=== PATIENT | male | born 1985 | race Hispanic/Latino ===

== ENCOUNTER 2019-09-19 17:59 | Inpatient (IN) | payer OTHER ==
[2019-09-19] MEDS ORDERED: SODIUM CHLORIDE 0.9% 1000 ML IV SOLN IV ONE (21:26)
--- NOTE | 2019-09-19 21:26 | Event Note ---
ED Screening Note ED Screening Note: pt presents with a rectal abscess that began a week +fever This initial assessment/diagnostic orders/clinical plan/treatment(s) is/are subject to change based on patients health status, clinical progression and re- assessment by fellow clinical providers in the ED. Further treatment and workup at subsequent clinical providers discretion. Patient/guardian urged not to elope from the ED as their condition may be serious if not clinically assessed and managed. Initial orders include: code sepsis fever tachycardia in triage code sepsis initiated
[2019-09-19] MEDS ORDERED: ACETAMINOPHEN 325 MG TAB PO ONE (21:28)
[2019-09-19 21:49] LABS: Basophils # (Auto) 0.1 K/mm3 (0.0-0.1); Basophils % (Auto) 0.4 % (0.0-1.8); Eosinophils # (Auto) 0.1 K/mm3 (0.0-0.4); Eosinophils % (Auto) 0.4 % (0.0-4.3); Hematocrit 43.3 % (35.5-45.6); Hemoglobin 14.8 gm/dl (11.8-15.2); Lymphocytes # (Auto) 1.5 K/mm3 (1.2-5.4); Lymphocytes % (Auto) 9.1 % (13.4-35.0); Mean Corpuscular HGB Conc 34 % (32-34); Mean Corpuscular Volume 87 fl (84-94); Monocytes # (Auto) 1.6 K/mm3 (0.0-0.8); Monocytes % (Auto) 10.1 % (0.0-7.3); Platelet Count 283 K/mm3 (140-440); Red Blood Count 5.01 M/mm3 (3.65-5.03); Red Cell Distribution Width 13.6 % (13.2-15.2)
[2019-09-19 22:04] LABS: Alanine Aminotransferase 28 units/L (7-56); Albumin 4.1 g/dL (3.9-5); BUN/Creatinine Ratio 14; Blood Urea Nitrogen 10 mg/dL (9-20); Calcium 9.2 mg/dL (8.4-10.2); Hemolysis Index 2
[2019-09-19] MEDS ORDERED: HYDROmorphone 1 MG/1 ML INJ IV ONE (23:28)
[2019-09-19] MEDS ORDERED: metroNIDAZOLE/NS 500 MG/100 ML 500 MG/100 ML BAG IV ONE (23:28)
[2019-09-19] MEDS ORDERED: PIPERACIL/TAZOBACTA 4.5/NS 100 4.5 GM/100 ML VIAL IV ONE (23:28)
--- NOTE | 2019-09-19 23:30 | Emergency Department Report ---
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 To me, he denies chronic medical conditions. He presents to the ER with a complaint of "I think I have a perirectal abscess." He complains of 10 days right sided gluteal cheek pain and swelling, gradual, nontraumatic. He did not know that he had a fever. He denies additional complaints. His pain is sharp and throbbing, increases with palpation, and decreases with rest. He denies insertive anal intercourse, and denies insertion of foreign bodies into his rectum. To me, he denies testicular pain, and irritative/obstructive urinary symptoms. Symptoms constant, getting worse, increased with palpation, decreases with rest -: Gradual, days(s) Location: right Severity scale (0 -10): 9 Consistency: constant Improves with: other Worsens with: other - Related Data Allergies Allergy/AdvReac Type Severity Reaction Status Date / Time No Known Allergies Allergy Unverified 09/19/19 18:16 ED Review of Systems ROS: Stated complaint: BOIL ON BUTT Other details as noted in HPI Constitutional: see HPI Eyes: as per HPI ENT: as per HPI Respiratory: see HPI Cardiovascular: as per HPI Gastrointestinal: as per HPI. denies: nausea, diarrhea, constipation Genitourinary: as per HPI Musculoskeletal: arthralgia Skin: rash Neurological: weakness Psychiatric: as per HPI Hematological/Lymphatic: as per HPI ED Past Medical Hx - Past Medical History Previous Medical History?: Yes Additional medical history: Hyperthyroidism - Surgical History Past Surgical History?: No - Social History Smoking Status: Unknown if ever smoked Substance Use Type: None ED Physical Exam - General Limitations: No Limitations General appearance: alert, anxious, in distress - Head Head exam: Present: atraumatic, normocephalic - Eye Eye exam: Present: normal appearance - ENT ENT exam: Present: normal exam, normal orophraynx, mucous membranes moist, normal external ear exam - Neck Neck exam: Present: normal inspection, full ROM. Absent: tenderness, meningismus - Respiratory Respiratory exam: Present: normal lung sounds bilaterally. Absent: respiratory distress, wheezes, rales, rhonchi, stridor, chest wall tenderness, accessory m uscle use, decreased breath sounds, prolonged expiratory - Cardiovascular Cardiovascular Exam: Present: normal rhythm, tachycardia, normal heart sounds. Absent: systolic murmur, diastolic murmur, rubs, gallop - GI/Abdominal GI/Abdominal exam: Present: soft. Absent: distended, tenderness, guarding, rebound, rigid, pulsatile mass - Rectal Rectal exam: Present: other (There is induration and fluctuance noted to the right gluteal cheek. There is redness. There is no testicular tenderness.). Absent: normal inspection - exam: Present: normal inspection, other (There is normal testicular lie. There is normal cremasteric reflex. There is no testicular tenderness. There is no testicular swelling). Absent: testicular tenderness External exam: Present: normal external exam, other (Chaperoned by nurse Cathleen Moore) - Extremities Exam Extremities exam: Present: normal inspection, full ROM, other (2+ pulses noted in the bilateral upper and lower extremities. There is no palpable cord. negative Homans sign. Muscular compartments are soft. The pelvis is stable.). Absent: pedal edema, calf tenderness - Back Exam Back exam: Present: normal inspection, full ROM. Absent: tenderness, CVA tenderness (R), CVA tenderness (L), paraspinal tenderness, vertebral tenderness - Neurological Exam Neurological exam: Present: alert, oriented X3, other (There is no facial droop. The tongue is midline. Extraocular movements are intact bilaterally. There is 5 out of 5 strength in bilateral upper and lower extremities. Sensation is intact to light touch bilateral upper and lower extremities. There is a normal gait.). Absent: motor sensory deficit - Psychiatric Psychiatric exam: Present: anxious - Skin Skin exam: Present: warm, erythema ED Course Vital Signs 09/19/19 09/19/19 09/19/19 19:21 21:37 23:24 Temperature 101.5 F H 102.6 F H Pulse Rate 116 H 116 H Respiratory 18 18 Rate Blood Pressure 153/83 153/83 O2 Sat by Pulse 97 97 99 Oximetry 09/19/19 09/19/19 23:30 23:31 Temperature 98.8 F Pulse Rate 106 H Respiratory 24 Rate Blood Pressure 138/91 O2 Sat by Pulse 97 Oximetry - Reevaluation(s) Reevaluation #1: 09/20/19 00:15 Differential diagnosis, including but not limited to: Perirectal abscess, perianal abscess, Randolph's gangrene Assessment and plan: 34-year-old gentleman, who is not immune compromised, who reports he is not a diabetic, with gluteal abscess, and probable sepsis. He is febrile and tachycardic. He also appears to be quite anxious. He is hemodynamically stable. He will be given fluids, pain medication, antibiotics, CT scan of the pelvis will be obtained. We will reassess after his data points have resulted. Discussed plan of care with patient, who verbalized understanding. There is no testicular pain or tenderness. Reevaluation #2: 09/20/19 02:00 ct scan pelvis confirms perianal abscess without presence of Randolph's gangrene. Contacted general surgeon on-call, Dr. Nickerson, who will see the patient in consultation. Consulted hospital physician, Dr. Rowan, who has accepted the patient to the medical service. Discussed this with the patient, who verbalizes understanding. 09/20/19 02:02 ED Medical Decision Making - Lab Data Result diagrams: 09/19/19 21:36 09/19/19 21:36 Vital Signs 09/19/19 09/19/19 09/19/19 19:21 21:37 23:24 Temperature 101.5 F H 102.6 F H Pulse Rate 116 H 116 H Respiratory 18 18 Rate Blood Pressure 153/83 153/83 O2 Sat by Pulse 97 97 99 Oximetry 09/19/19 09/19/19 23:30 23:31 Temperature 98.8 F Pulse Rate 106 H Respiratory 24 Rate Blood Pressure 138/91 O2 Sat by Pulse 97 Oximetry Lab Results 09/19/19 09/19/19 09/19/19 Range/Units 21:36 21:36 21:36 WBC 16.0 H (4.5-11.0) K/mm3 RBC 5.01 (3.65-5.03) M/mm3 Hgb 14.8 (11.8-15.2) gm/dl Hct 43.3 (35.5-45.6) % MCV 87 (84-94) fl MCH 30 (28-32) pg MCHC 34 (32-34) % RDW 13.6 (13.2-15.2) % Plt Count 283 (140-440) K/mm3 Lymph % (Auto) 9.1 L (13.4-35.0) % [place] % (Auto) 10.1 H (0.0-7.3) % Eos % (Auto) 0.4 (0.0-4.3) % Baso % (Auto) 0.4 (0.0-1.8) % Lymph # 1.5 (1.2-5.4) K/mm3 [place] # 1.6 H (0.0-0.8) K/mm3 Eos # 0.1 (0.0-0.4) K/mm3 Baso # 0.1 (0.0-0.1) K/mm3 Seg Neutrophils % 80.0 H (40.0-70.0) % Seg Neutrophils # 12.8 H (1.8-7.7) K/mm3 Sodium 134 L (137-145) mmol/L Potassium 3.8 (3.6-5.0) mmol/L Chloride 97.9 L (98-107) mmol/L Carbon Dioxide 21 L (22-30) mmol/L Anion Gap 19 mmol/L BUN 10 (9-20) mg/dL Creatinine 0.7 L (0.8-1.5) mg/dL Estimated GFR > 60 ml/min BUN/Creatinine Ratio 14 % Glucose 125 H (75-100) mg/dL Lactic Acid 1.40 (0.7-2.0) mmol/L Calcium 9.2 (8.4-10.2) mg/dL Total Bilirubin 1.20 (0.1-1.2) mg/dL AST 18 (5-40) units/L ALT 28 (7-56) units/L Alkaline Phosphatase 91 (35-129) units/L Total Protein 7.9 (6.3-8.2) g/dL Albumin 4.1 (3.9-5) g/dL Albumin/Globulin Ratio 1.1 % - EKG Data -: EKG Interpreted by [facility] EKG shows normal: sinus rhythm Rate: normal - EKG Data When compared to previous EKG there are: previous EKG unavailable 09/20/19 00:16 Sinus rhythm, 94 bpm, left axis deviation, left anterior fascicular block, high left ventricular voltage, intervals within normal limits, the EKG is abnormal, it is not consistent with a STEMI - Radiology Data Radiology results: pending, report reviewed, image reviewed Print Report Referring Physician: KATHERYN HANSEN Patient Name: PAN LAGOS Date of : 1985 Sex: Male Report Date: 2019-09-20 Report Status: Finalized Findings [facility] [address] [place] [address] Cat Scan Report Signed Patient: PAN LAOGS MR#: [id number] : 1985 Acct:[id number] Age/Sex: 34 / M ADM Date: 09/19/19 Loc: ED Attending Dr: Ordering Physician: KATHERYN HANSEN MD Date of Service: 09/19/19 Procedure(s): CT pelvis w con Accession Number(s): [id number] cc: KATHERYN HANSEN MD CT of the pelvis with contrast INDICATION: Fever and rectal abscess COMPARISON: None FINDINGS: Appendix is seen and is normal. No diverticulitis or inflammatory bowel disease seen in the pelvis. There is no adenopathy. Prostate is not enlarged. In the right perianal region there is moderate inflammation with a 2.5 x 3.5 cm fluid collection consistent with a perianal abscess. No gas is seen within this collection. No fistula tract is seen and again no intrapelvic abnormality. IMPRESSION: Perianal abscess. Automated exposure control was utilized to diminish radiation dose. Signer Name: Salvador Lozano MD Signed: 09/20/2019 1:06 AM Workstation Name: [id number] Transcribed By: HEIDI Dictated By: Salvador Lozano MD Electronically Authenticated By: Salvador Lozano MD Signed Date/Time: 09/20/19105 DD/ 1 Critical care attestation.: If time is entered above; I have spent that time in minutes in the direct care of this critically ill patient, excluding procedure time. ED Disposition Clinical Impression: Sepsis, Abscess, perianal Disposition: -09 OP ADMIT IP TO THIS HOSP Is pt being admited?: Yes Does the pt Need Aspirin: No Condition: Good Referrals: PRIMARY CARE,MD [Primary Care Provider] - 3-5 Days
--- NOTE | 2019-09-20 01:10 | Cat Scan Report ---
CT of the pelvis with contrast INDICATION: Fever and rectal abscess COMPARISON: None FINDINGS: Appendix is seen and is normal. No diverticulitis or inflammatory bowel disease seen in the pelvis. There is no adenopathy. Prostate is not enlarged. In the right perianal region there is mode rate inflammation with a 2.5 x 3.5 cm fluid collection consistent with a perianal abscess. No gas is seen within this collection. No fistula tract is seen and again no intrapelvic abnormality. IMPRESSION: Perianal abscess. Automated exposure control was utilized to diminish radiation dose. Signer Name: Salvador Lozano MD Signed: 09/20/2019 1:06 AM Workstation Name: [id number]
[2019-09-20] MEDS ORDERED: HYDROmorphone 1 MG/1 ML INJ IV ONE (02:05)
[2019-09-20] MEDS ORDERED: ONDANSETRON 4 MG/2 ML INJ IV PRN (03:06)
[2019-09-20] MEDS ORDERED: VANCOMYCIN PHARMACY TO DOSE IV SCH (03:32)
[2019-09-20] MEDS ORDERED: LACTATED RINGERS 1,000 ML IV ONE (03:45)
[2019-09-20] MEDS ORDERED: LACTATED RINGERS 1,000 ML ONE (03:54)
--- NOTE | 2019-09-20 04:14 | History and Physical Report ---
History of Present Illness Date of examination: 09/20/19 Date of admission: 09/20/19 02:52 Chief complaint: Perirectal pain History of present illness: 34M with PMH of Hypothyrodism presents with c/o perirectal pain and swelling gradually for 7 days now. Pt says pain has gotten worse to unbearable levels. He says it all started after he took pills for a 10 day colonic cleansing last week- which caused profuse diarrhea. He says he first thought he had hemmoroidal pain which he gets sometimes but he had to abort the colonic cleansing. HE denies any fevers, high fevers, N, V, melena, hematemesis, hematochezia. He denies any hx of COlonoscopy. Positive family history of Colon cancer in Paternal Grandfather. Although pt is hairy, he denies waxing or shaving his perianal areas. ALso, he denies anal receptive sex. No hx of DM, VA, syncope. Pt says he occasionally gets a rash to both of his shins and back of his knees on and off. I asked him about his hypothyroidism but he says he was told he had some thyroid disease, - low about 2 yrs ago but pt states that he did not go back for follow up. Past History Past Medical History: hypothyroidism, other Past Surgical History: No surgical history Social history: single, IV drug use. denies: smoking, alcohol abuse Family history: cancer (Paternal Grandfather) Medications and Allergies Allergies Allergy/AdvReac Type Severity Reaction Status Date / Time No Known Allergies Allergy Verified 09/20/19 03:14 Active Meds: Active Medications Acetaminophen (Tylenol) 650 mg PO Q4H PRN PRN Reason: Pain MILD(1-3)/Fever >100.5/VERAS Famotidine (Pepcid) 10 mg PO BID VASHTI Hydromorphone HCl (Dilaudid) 1 mg IV Q3H PRN PRN Reason: Pain , Severe (7-10) Piperacillin Sod/Tazobactam Sod (Zosyn/Ns 4.5gm/100ml) 4.5 gm in 100 mls @ 200 mls/hr IV Q8HR VASHTI; Protocol Lactated Ringer's (Lactated Ringers) 1,000 mls @ 125 mls/hr IV DIRECT VASHTI Lactated Ringer's (Lactated Ringers) 1,000 mls @ 999 mls/hr IV BOLUS ONE Stop: 09/20/19 04:45 Last Admin: 09/20/19 03:57 Dose: 999 mls/hr Documented by: Morphine Sulfate (Morphine) 2 mg IV Q4H PRN PRN Reason: Pain, Moderate (4-6) Ondansetron HCl (Zofran) 4 mg IV Q8H PRN PRN Reason: Nausea And Vomiting Sodium Chloride (Sodium Chloride Flush Syringe 10 Ml) 10 ml IV BID VASHTI Sodium Chloride (Sodium Chloride Flush Syringe 10 Ml) 10 ml IV PRN PRN PRN Reason: LINE FLUSH Review of Systems All systems: negative Exam - Constitutional Vitals: Temp Pulse Resp BP Pulse Ox 98.8 F 84 22 94/42 96 09/19/19 23:31 09/20/19 03:46 09/20/19 03:46 09/20/19 03:46 09/20/19 03:46 General appearance: Present: no acute distress, well-nourished - EENT Eyes: Present: PERRL ENT: hearing intact, clear oral mucosa - Neck Neck: Present: supple, normal ROM - Respiratory Respiratory effort: normal Respiratory: bilateral: CTA - Cardiovascular Heart Sounds: Present: S1 & S2. Absent: rub, click - Extremities Extremities: pulses symmetrical, No edema Peripheral Pulses: within normal limits - Abdominal General gastrointestinal: Present: soft, non-tender, non-distended, normal bowel sounds Male genitourinary: Present: normal - Rectal Rectal Exam: tenderness, hemorrhoids (one big hemorroid is present at rt side of oval window) - Integumentary Integumentary: Present: clear, warm, dry - Musculoskeletal Musculoskeletal: gait normal, strength equal bilaterally - Psychiatric Psychiatric: appropriate mood/affect, intact judgment & insight - Neurologic Neurologic: CNII-XII intact, moves all extremities Results - Labs CBC & Chem 7: 09/19/19 21:36 09/19/19 21:36 Labs: Laboratory Last Values WBC 16.0 K/mm3 (4.5-11.0) H 09/19/19 21:36 RBC 5.01 M/mm3 (3.65-5.03) 09/19/19 21:36 Hgb 14.8 gm/dl (11.8-15.2) 09/19/19 21:36 Hct 43.3 % (35.5-45.6) 09/19/19 21:36 MCV 87 fl (84-94) 09/19/19 21:36 MCH 30 pg (28-32) 09/19/19 21:36 MCHC 34 % (32-34) 09/19/19 21:36 RDW 13.6 % (13.2-15.2) 09/19/19 21:36 Plt Count 283 K/mm3 (140-440) 09/19/19 21:36 Lymph % (Auto) 9.1 % (13.4-35.0) L 09/19/19 21:36 [place] % (Auto) 10.1 % (0.0-7.3) H 09/19/19 21:36 Eos % (Auto) 0.4 % (0.0-4.3) 09/19/19 21:36 Baso % (Auto) 0.4 % (0.0-1.8) 09/19/19 21:36 Lymph # 1.5 K/mm3 (1.2-5.4) 09/19/19 21:36 [place] # 1.6 K/mm3 (0.0-0.8) H 09/19/19 21:36 Eos # 0.1 K/mm3 (0.0-0.4) 09/19/19 21:36 Baso # 0.1 K/mm3 (0.0-0.1) 09/19/19 21:36 Seg Neutrophils % 80.0 % (40.0-70.0) H 09/19/19 21:36 Seg Neutrophils # 12.8 K/mm3 (1.8-7.7) H 09/19/19 21:36 Sodium 134 mmol/L (137-145) L 09/19/19 21:36 Potassium 3.8 mmol/L (3.6-5.0) 09/19/19 21:36 Chloride 97.9 mmol/L (98-107) L 09/19/19 21:36 Carbon Dioxide 21 mmol/L (22-30) L 09/19/19 21:36 Anion Gap 19 mmol/L 09/19/19 21:36 BUN 10 mg/dL (9-20) 09/19/19 21:36 Creatinine 0.7 mg/dL (0.8-1.5) L 09/19/19 21:36 Estimated GFR > 60 ml/min 09/19/19 21:36 BUN/Creatinine Ratio 14 % 09/19/19 21:36 Glucose 125 mg/dL (75-100) H 09/19/19 21:36 Lactic Acid 1.40 mmol/L (0.7-2.0) 09/20/19 00:36 Calcium 9.2 mg/dL (8.4-10.2) 09/19/19 21:36 Magnesium 2.00 mg/dL (1.7-2.3) 09/19/19 21:36 Total Bilirubin 1.20 mg/dL (0.1-1.2) 09/19/19 21:36 AST 18 units/L (5-40) 09/19/19 21:36 ALT 28 units/L (7-56) 09/19/19 21:36 Alkaline Phosphatase 91 units/L (35-129) 09/19/19 21:36 Total Creatine Kinase 55 units/L (55-170) 09/19/19 21:36 Total Protein 7.9 g/dL (6.3-8.2) 09/19/19 21:36 Albumin 4.1 g/dL (3.9-5) 09/19/19 21:36 Albumin/Globulin Ratio 1.1 % 09/19/19 21:36 Assessment and Plan Assessment and plan: Acute Perianal Abscess - 2.5cm By 3.5Cm by dimension on CT imaging study - Etiology likely due to translocation of Enteric pathogens. No Diverticulitis/losis reported on imaging - Pt needs surgical drainage. - NPO after MN. ED spoke with Gen Sx- Dr Nickerson who accepts consult. - PRN analgesics, IV antibiotics with IV Vancomycin and Zosyn. In the ED, pt received Flagyl. Sepsis - with leucocytosis, assymtomatic hypotension 90/42, and source of infection - pt is non toxic appearing and this is reassuring - His hypotension, is from dehydration +/- Opioid use in this Opiod naive pt, IV bolus with LR now Metabolic Acidosis - Due to colonic cleansing last 7 days. - LR IVF - reassess Hypothyroidism - by history - check TSH for starters - Check RF, ALYSON given intermittent rash and arthralgias. ? IBD. Advance Directives: Yes VTE prophylaxis?: Mechanical Reason for no VTE Prophylaxis: Surgical contraindication
[2019-09-20] MEDS ORDERED: VANCOMYCIN 1,750 MG in SODIUM CHLORIDE 0.9% 500 ML 500 ML IV ONE (04:45)
[2019-09-20] MEDS: LACTATED RINGERS 1,000 ML IV SCH ×2 (05:37→16:22)
[2019-09-20] MEDS: PIPERACIL/TAZOBACTA 4.5/NS 100 4.5 GM/100 ML VIAL IV SCH ×3 (05:57→22:06)
[2019-09-20] MEDS: MORPHINE 2 MG/1 ML INJ IV PRN ×3 (06:01→22:23)
[2019-09-20] MEDS ORDERED: oxyCODONE /ACETAMINOPHEN 5-325MG TAB PO PRN (07:32)
--- NOTE | 2019-09-20 07:32 | Consultation ---
History of Present Illness Consult date: 09/20/19 Reason for consult: other (perianal abscess) Requesting physician: KATHERYN HANSEN Chief complaint: perianal pain - History of present illness History of present illness: 34yo M with a history of hypothyroidism presents with a one-week history of progressively worsening perianal pain. He has never had this before. Work-up in the emergency department showed a perianal abscess. General surgery was asked to consult. Patient denies any prior procedures or trauma to the area. Past History Past Medical History: hypothyroidism, other Past Surgical History: No surgical history Social history: single, IV drug use. denies: smoking, alcohol abuse Family history: cancer (Paternal Grandfather) Medications and Allergies Allergies Allergy/AdvReac Type Severity Reaction Status Date / Time No Known Allergies Allergy Verified 09/20/19 03:14 Home Medications Medication Instructions Recorded Confirmed Last Taken Type RX: No Known Home Medications [No 09/20/19 09/20/19 Unknown History Reported Home Medications] Active Meds: Active Medications Acetaminophen (Tylenol) 650 mg PO Q4H PRN PRN Reason: Pain MILD(1-3)/Fever >100.5/VERAS Famotidine (Pepcid) 10 mg PO BID VASHTI Hydromorphone HCl (Dilaudid) 1 mg IV Q3H PRN PRN Reason: Pain , Severe (7-10) Piperacillin Sod/Tazobactam Sod (Zosyn/Ns 4.5gm/100ml) 4.5 gm in 100 mls @ 200 mls/hr IV Q8HR VASHTI; Protocol Last Admin: 09/20/19 05:57 Dose: 200 mls/hr Documented by: Lactated Ringer's (Lactated Ringers) 1,000 mls @ 125 mls/hr IV DIRECT VASHTI Last Admin: 09/20/19 05:37 Dose: 125 mls/hr Documented by: Vancomycin HCl 1,250 mg/ (Sodium Chloride) 275 mls @ 166.667 mls/hr IV Q12H VAHSTI Morphine Sulfate (Morphine) 2 mg IV Q4H PRN PRN Reason: Pain, Moderate (4-6) Last Admin: 09/20/19 06:01 Dose: 2 mg Documented by: Ondansetron HCl (Zofran) 4 mg IV Q8H PRN PRN Reason: Nausea And Vomiting Sodium Chloride (Sodium Chloride Flush Syringe 10 Ml) 10 ml IV BID VASHTI Sodium Chloride (Sodium Chloride Flush Syringe 10 Ml) 10 ml IV PRN PRN PRN Reason: LINE FLUSH Review of Systems - Constitutional fever, chills, no chronic pain - Cardiovascular no chest pain, no shortness of breath - Respiratory no cough - Gastrointestinal no abdominal pain, no nausea, no vomiting - Integumentary boils Exam Vital Signs Temp Pulse Resp BP Pulse Ox 101.5 F H 116 H 18 153/83 97 09/19/19 19:21 09/19/19 19:21 09/19/19 19:21 09/19/19 19:21 09/19/19 19:21 - General physical appearance Positive: well developed, well nourished, no distress, no pain, other (pleasant). Negative: chronically ill - Eyes Positive: normal occular movement - Respiratory Positive: normal expansion, normal respiratory effort - Abdomen Abdomen: Present: soft - Rectum Rectum: mass (In the right perianal area. Fluctuant area noted in the center. Mass was approximately 3 x 5 cm. Positive erythema and tenderness. No active drainage. Surrounding tissue was normal. No involvement of scrotum.) - Neurologic Neurologic: alert and oriented to time, place and person, motor strength and sensation are grossly intact - Psychiatric Psychiatric: appropriate mood/affect, intact judgment & insight, cooperative Results - Labs 09/20/19 09:02 09/20/19 09:02 Abnormal lab results 09/19/19 09/19/19 Range/Units 21:36 21:36 WBC 16.0 H (4.5-11.0) K/mm3 Lymph % (Auto) 9.1 L (13.4-35.0) % [place] % (Auto) 10.1 H (0.0-7.3) % [place] # 1.6 H (0.0-0.8) K/mm3 Seg Neutrophils % 80.0 H (40.0-70.0) % Seg Neutrophils # 12.8 H (1.8-7.7) K/mm3 Sodium 134 L (137-145) mmol/L Chloride 97.9 L (98-107) mmol/L Carbon Dioxide 21 L (22-30) mmol/L Creatinine 0.7 L (0.8-1.5) mg/dL Glucose 125 H (75-100) mg/dL Diabetes panel 09/19/19 Range/Units 21:36 Sodium 134 L (137-145) mmol/L Potassium 3.8 (3.6-5.0) mmol/L Chloride 97.9 L (98-107) mmol/L Carbon Dioxide 21 L (22-30) mmol/L BUN 10 (9-20) mg/dL Creatinine 0.7 L (0.8-1.5) mg/dL Glucose 125 H (75-100) mg/dL Calcium 9.2 (8.4-10.2) mg/dL AST 18 (5-40) units/L ALT 28 (7-56) units/L Alkaline Phosphatase 91 (35-129) units/L Total Protein 7.9 (6.3-8.2) g/dL Albumin 4.1 (3.9-5) g/dL Calcium panel 09/19/19 Range/Units 21:36 Calcium 9.2 (8.4-10.2) mg/dL Albumin 4.1 (3.9-5) g/dL Pituitary panel 09/19/19 Range/Units 21:36 Sodium 134 L (137-145) mmol/L Potassium 3.8 (3.6-5.0) mmol/L Chloride 97.9 L (98-107) mmol/L Carbon Dioxide 21 L (22-30) mmol/L BUN 10 (9-20) mg/dL Creatinine 0.7 L (0.8-1.5) mg/dL Glucose 125 H (75-100) mg/dL Calcium 9.2 (8.4-10.2) mg/dL Adrenal panel 09/19/19 Range/Units 21:36 Sodium 134 L (137-145) mmol/L Potassium 3.8 (3.6-5.0) mmol/L Chloride 97.9 L (98-107) mmol/L Carbon Dioxide 21 L (22-30) mmol/L BUN 10 (9-20) mg/dL Creatinine 0.7 L (0.8-1.5) mg/dL Glucose 125 H (75-100) mg/dL Calcium 9.2 (8.4-10.2) mg/dL Total Bilirubin 1.20 (0.1-1.2) mg/dL AST 18 (5-40) units/L ALT 28 (7-56) units/L Alkaline Phosphatase 91 (35-129) units/L Total Protein 7.9 (6.3-8.2) g/dL Albumin 4.1 (3.9-5) g/dL - Imaging CT scan - pelvis: report reviewed, image reviewed Assessment and Plan - Patient Problems (1) Abscess, perianal Current Visit: Yes Status: Acute Plan to address problem: Pt stable. Plan for bedside I&D later this morning. Time=30min
[2019-09-20] MEDS ORDERED: LIDOCAINE 1%/EPINEPHRINE 1:100,000 VIAL (20 ML) INFILTRATI ONE (08:00)
[2019-09-20 09:21] LABS: Bilirubin,Urine NEG (Negative); Blood,Urine NEG (Negative); Color,Urine Yellow (Yellow); Mucus,Urine FEW /HPF; Protein,Urine <15 mg/dL mg/dL (Negative); Urobilinogen,Urine < 2.0 mg/dL (<2.0)
[2019-09-20 09:28] LABS: Basophils # (Auto) 0.1 K/mm3 (0.0-0.1); Basophils % (Auto) 0.5 % (0.0-1.8); Eosinophils # (Auto) 0.1 K/mm3 (0.0-0.4); Eosinophils % (Auto) 0.5 % (0.0-4.3); Hematocrit 39.9 % (35.5-45.6); Hemoglobin 13.4 gm/dl (11.8-15.2); Lymphocytes # (Auto) 1.4 K/mm3 (1.2-5.4); Lymphocytes % (Auto) 11.2 % (13.4-35.0); Mean Corpuscular HGB Conc 34 % (32-34); Mean Corpuscular Volume 87 fl (84-94); Monocytes # (Auto) 1.2 K/mm3 (0.0-0.8); Monocytes % (Auto) 9.5 % (0.0-7.3); Platelet Count 208 K/mm3 (140-440); Red Blood Count 4.57 M/mm3 (3.65-5.03); Red Cell Distribution Width 13.6 % (13.2-15.2)
--- NOTE | 2019-09-20 09:47 | Progress Note ---
Assessment and Plan Assessment and plan: --Acute Perianal Abscess 2.5cm By 3.5Cm by dimension on CT imaging study N.p.o. status, empiric antibiotics, supportive care Follow surgery evaluation recommendation Possible incision and drainage today IV fluids and pain management --Sepsis; leucocytosis, tachycardia, fever, hypotension 90/42, and source of infection [abscess] Rigorous IV hydration, pain management, IV antibiotics follow cultures, Incision and drainage today --Febrile illness; secondary to sepsis Antibiotics, antipyretics, treat underlying cause --Metabolic Acidosis; Aggressive IV hydration --History of hypothyroidism Abnormal TSH, check thyroid panel Manage accordingly Advance Directives: Yes VTE prophylaxis?: Mechanical Reason for no VTE Prophylaxis: Surgical contraindication Plan of care reviewed with the patient and his nurse Surgery consult evaluation and recommendations noted and appreciated Monitor closely and adjust management as needed History Interval history: Patient seen and examined at the bedside Patient's chart and other records reviewed Admitted with perirectal abscess Evaluated by surgery Planning incision and drainage Patient complains of some pain Vital signs reviewed Hospitalist Physical - Constitutional Vitals: Temp Pulse Resp BP Pulse Ox 100.0 F H 92 H 18 101/45 99 09/20/19 04:41 09/20/19 04:41 09/20/19 06:01 09/20/19 04:41 09/20/19 04:41 General appearance: Present: no acute distress, well-nourished - EENT Eyes: Present: PERRL, EOM intact - Neck Neck: Present: supple, normal ROM - Respiratory Respiratory effort: normal Respiratory: bilateral: diminished, negative: rales, rhonchi, wheezing - Cardiovascular Rhythm: regular Heart Sounds: Present: S1 & S2 - Extremities Extremities: no ischemia, No edema - Abdominal General gastrointestinal: soft, non-tender, non-distended, normal bowel sounds - Integumentary Integumentary: Present: clear, warm - Psychiatric Psychiatric: appropriate mood/affect, cooperative - Neurologic Neurologic: moves all extremities Results - Labs CBC & Chem 7: 09/20/19 09:02 09/20/19 09:02 Labs: Laboratory Last Values WBC 12.5 K/mm3 (4.5-11.0) H 09/20/19 09:02 RBC 4.57 M/mm3 (3.65-5.03) 09/20/19 09:02 Hgb 13.4 gm/dl (11.8-15.2) 09/20/19 09:02 Hct 39.9 % (35.5-45.6) 09/20/19 09:02 MCV 87 fl (84-94) 09/20/19 09:02 MCH 29 pg (28-32) 09/20/19 09:02 MCHC 34 % (32-34) 09/20/19 09:02 RDW 13.6 % (13.2-15.2) 09/20/19 09:02 Plt Count 208 K/mm3 (140-440) 09/20/19 09:02 Lymph % (Auto) 11.2 % (13.4-35.0) L 09/20/19 09:02 [place] % (Auto) 9.5 % (0.0-7.3) H 09/20/19 09:02 Eos % (Auto) 0.5 % (0.0-4.3) 09/20/19 09:02 Baso % (Auto) 0.5 % (0.0-1.8) 09/20/19 09:02 Lymph # 1.4 K/mm3 (1.2-5.4) 09/20/19 09:02 [place] # 1.2 K/mm3 (0.0-0.8) H 09/20/19 09:02 Eos # 0.1 K/mm3 (0.0-0.4) 09/20/19 09:02 Baso # 0.1 K/mm3 (0.0-0.1) 09/20/19 09:02 Seg Neutrophils % 78.3 % (40.0-70.0) H 09/20/19 09:02 Seg Neutrophils # 9.8 K/mm3 (1.8-7.7) H 09/20/19 09:02 Sodium 134 mmol/L (137-145) L 09/19/19 21:36 Potassium 3.8 mmol/L (3.6-5.0) 09/19/19 21:36 Chloride 97.9 mmol/L (98-107) L 09/19/19 21:36 Carbon Dioxide 21 mmol/L (22-30) L 09/19/19 21:36 Anion Gap 19 mmol/L 09/19/19 21:36 BUN 10 mg/dL (9-20) 09/19/19 21:36 Creatinine 0.7 mg/dL (0.8-1.5) L 09/19/19 21:36 Estimated GFR > 60 ml/min 09/19/19 21:36 BUN/Creatinine Ratio 14 % 09/19/19 21:36 Glucose 125 mg/dL (75-100) H 09/19/19 21:36 Lactic Acid 0.90 mmol/L (0.7-2.0) 09/20/19 09:02 Calcium 9.2 mg/dL (8.4-10.2) 09/19/19 21:36 Magnesium 2.00 mg/dL (1.7-2.3) 09/19/19 21:36 Total Bilirubin 1.20 mg/dL (0.1-1.2) 09/19/19 21:36 AST 18 units/L (5-40) 09/19/19 21:36 ALT 28 units/L (7-56) 09/19/19 21:36 Alkaline Phosphatase 91 units/L (35-129) 09/19/19 21:36 Total Creatine Kinase 55 units/L (55-170) 09/19/19 21:36 Total Protein 7.9 g/dL (6.3-8.2) 09/19/19 21:36 Albumin 4.1 g/dL (3.9-5) 09/19/19 21:36 Albumin/Globulin Ratio 1.1 % 09/19/19 21:36 Urine Color Yellow (Yellow) 09/20/19 08:30 Urine Turbidity Clear (Clear) 09/20/19 08:30 Urine pH 5.0 (5.0-7.0) 09/20/19 08:30 Ur Specific [place] 1.026 (1.003-1.030) 09/20/19 08:30 Urine Protein <15 mg/dl mg/dL (Negative) 09/20/19 08:30 Urine Glucose (UA) Neg mg/dL (Negative) 09/20/19 08:30 Urine Ketones Neg mg/dL (Negative) 09/20/19 08:30 Urine Blood Neg (Negative) 09/20/19 08:30 Urine Nitrite Neg (Negative) 09/20/19 08:30 Urine Bilirubin Neg (Negative) 09/20/19 08:30 Urine Urobilinogen < 2.0 mg/dL (<2.0) 09/20/19 08:30 Ur Leukocyte Esterase Neg (Negative) 09/20/19 08:30 Urine WBC (Auto) 1.0 /HPF (0.0-6.0) 09/20/19 08:30 Urine RBC (Auto) 6.0 /HPF (0.0-6.0) 09/20/19 08:30 Urine Mucus Few /HPF 09/20/19 08:30 Active Medications - Current Medications Current Medications: Generic Name Dose Route Start Last Admin Trade Name Freq PRN Reason Stop Dose Admin Acetaminophen 650 mg 09/20/19 03:06 Tylenol PO Q4H PRN Pain MILD(1-3)/Fever >100.5/VERAS Famotidine 10 mg 09/20/19 10:00 Pepcid PO BID VASHTI Hydromorphone HCl 1 mg 09/20/19 03:52 Dilaudid IV Q3H PRN Pain , Severe (7-10) Piperacillin Sod/Tazobactam Sod 4.5 gm in 100 mls @ 200 mls/hr 09/20/19 06:00 09/20/19 05:57 Zosyn/Ns 4.5gm/100ml IV 200 mls/hr Q8HR VASHTI Administration Protocol Lactated Ringer's 1,000 mls @ 125 mls/hr 09/20/19 04:00 09/20/19 05:37 Lactated Ringers IV 125 mls/hr DIRECT VASHTI Administration Vancomycin HCl 1,250 mg/ 275 mls @ 166.667 mls/hr 09/20/19 17:00 Sodium Chloride IV Q12H VASHTI Morphine Sulfate 2 mg 09/20/19 03:06 09/20/19 06:01 Morphine IV 2 mg Q4H PRN Administration Pain, Moderate (4-6) Ondansetron HCl 4 mg 09/20/19 03:06 Zofran IV Q8H PRN Nausea And Vomiting Oxycodone/Acetaminophen 2 tab 09/20/19 07:32 Percocet 5/325 PO Q6H PRN Pain, Moderate (4-6) Sodium Chloride 10 ml 09/20/19 10:00 Sodium Chloride Flush Syringe 10 Ml IV BID VASHTI Sodium Chloride 10 ml 09/20/19 03:06 Sodium Chloride Flush Syringe 10 Ml IV PRN PRN LINE FLUSH
[2019-09-20 09:51] LABS: BUN/Creatinine Ratio 7; Blood Urea Nitrogen 5 mg/dL (9-20); Calcium 8.4 mg/dL (8.4-10.2); Hemolysis Index 1
[2019-09-20] MEDS: FAMOTIDINE 10 MG TAB PO SCH ×2 (11:02→22:07)
[2019-09-20] MEDS ORDERED: LORazepam 2 MG/ML VIAL IV NR (11:45)
--- NOTE | 2019-09-20 13:34 | Procedure Note ---
Date of procedure: 09/20/19 Pre-op diagnosis: perianal abscess Post-op diagnosis: same Procedure: I&D of abscess Procedure, risk, benefits were discussed. All questions were answered. Consent was obtained. Timeout was performed. Sterile prep was done of the overlying skin. 1% lidocaine with epinephrine was used to anesthetize the skin. Oblique incision was made along the skin lines into the abscess cavity. Cavity was in the subcutaneous tissue layer. He did not involve the underlying fascia or musculature. Small amount of drainage was noted. Cavity was thoroughly probed. We were definitely with in an abscess cavity. A cruciate incision was made. Corners were excised. Wound was thoroughly irrigated. Wound was packed with quarter inch iodoform gauze. Skin was cleaned and dried. Dressings were placed. Patient tolerated procedure well. There were no complications. Nurse was present for the entire procedure. Findings: Small cavity with the minimal amount of purulent material Anesthesia: local Surgeon: DENILSON FARIAS Estimated blood loss: minimal Pathology: list (culture swabs) Specimen disposition: to lab Condition: stable Disposition: floor
[2019-09-20] MEDS: ACETAMINOPHEN 325 MG TAB PO PRN (16:28)
[2019-09-20] MEDS: VANCOMYCIN 1,250 MG in SODIUM CHLORIDE 0.9% 250ML 250 ML IV SCH ×2 (16:32→22:06)
[2019-09-20] MEDS ORDERED: VANCOMYCIN 1,250 MG in SODIUM CHLORIDE 0.9% 250ML 250 ML IV SCH (17:00)
[2019-09-21] MEDS: HYDROmorphone 2 MG/1 ML INJ IV PRN ×4 (01:34→12:13)
[2019-09-21] MEDS: LACTATED RINGERS 1,000 ML IV SCH ×2 (03:58→12:24)
[2019-09-21] MEDS: PIPERACIL/TAZOBACTA 4.5/NS 100 4.5 GM/100 ML VIAL IV SCH ×2 (05:09→13:44)
[2019-09-21] MEDS: VANCOMYCIN 1,250 MG in SODIUM CHLORIDE 0.9% 250ML 250 ML IV SCH (05:12)
[2019-09-21] MEDS: ACETAMINOPHEN 325 MG TAB PO PRN ×2 (06:17→12:10)
[2019-09-21 06:19] LABS: Basophils % (Auto) 0.4 % (0.0-1.8); Eosinophils # (Auto) 0.1 K/mm3 (0.0-0.4); Eosinophils % (Auto) 0.5 % (0.0-4.3); Hematocrit 38.4 % (35.5-45.6); Hemoglobin 12.8 gm/dl (11.8-15.2); Lymphocytes # (Auto) 1.8 K/mm3 (1.2-5.4); Lymphocytes % (Auto) 13.2 % (13.4-35.0); Mean Corpuscular HGB Conc 33 % (32-34); Mean Corpuscular Volume 88 fl (84-94); Monocytes # (Auto) 1.4 K/mm3 (0.0-0.8); Monocytes % (Auto) 10.3 % (0.0-7.3); Platelet Count 222 K/mm3 (140-440); Red Blood Count 4.38 M/mm3 (3.65-5.03); Red Cell Distribution Width 13.3 % (13.2-15.2)
[2019-09-21 06:41] LABS: BUN/Creatinine Ratio 6; Blood Urea Nitrogen 4 mg/dL (9-20); Calcium 8.3 mg/dL (8.4-10.2); Hemolysis Index 0
[2019-09-21 06:49] LABS: Free T4 (Free Thyroxine) 2.93 ng/dL (0.76-1.46)
--- NOTE | 2019-09-21 09:29 | Progress Note ---
Assessment and Plan - Patient Problems (1) Abscess, perianal Current Visit: Yes Status: Acute Plan to address problem: Patient stable. Status post I&D of perianal abscess. Clinically, patient is much improved. Okay for discharge from my standpoint. Recommendations: #1 May discharge to home from my perspective #2 May remove packing today #3 should do sitz baths at least 2-3 times a day and definitely after each bowel movement. #4 follow-up in the office in about 1 week. Have patient call for an appointment. #5 antibiotics per medical team. Please call with questions Subjective Date of service: 09/21/19 Patient Reports: Positive: no new complaints, feels better, pain is less Objective Vital Signs - 12hr 09/20/19 09/21/19 09/21/19 22:23 00:45 05:33 Temperature 99.5 F Pulse Rate 96 H Respiratory 20 16 20 Rate Blood Pressure 106/48 O2 Sat by Pulse 97 Oximetry - General physical appearance no distress, no pain - Eyes normal occular movement - Respiratory normal expansion, normal respiratory effort - Rectum other (erythema resolved. minimal tenderness. packing in place.) - Integumentary no rash - Psychiatric oriented to time, oriented to person, oriented to place, speech is normal, memory intact - Labs 09/21/19 05:46 09/21/19 05:46 Diabetes panel 09/20/19 09/21/19 Range/Units 09:02 05:46 Sodium 138 139 (137-145) mmol/L Potassium 3.8 3.8 (3.6-5.0) mmol/L Chloride 103.6 104.1 (98-107) mmol/L Carbon Dioxide 18 L 18 L (22-30) mmol/L BUN 5 L 4 L (9-20) mg/dL Creatinine 0.7 L 0.7 L (0.8-1.5) mg/dL Glucose 116 H 96 (75-100) mg/dL Calcium 8.4 8.3 L (8.4-10.2) mg/dL Thyroid panel 09/20/19 09/21/19 Range/Units 09:02 05:46 TSH < 0.005 L < 0.005 L (0.270-4.200) mlU/mL Calcium panel 09/20/19 09/21/19 Range/Units 09:02 05:46 Calcium 8.4 8.3 L (8.4-10.2) mg/dL Pituitary panel 09/20/19 09/20/19 09/21/19 Range/Units 09:02 09:02 05:46 Sodium 138 139 (137-145) mmol/L Potassium 3.8 3.8 (3.6-5.0) mmol/L Chloride 103.6 104.1 (98-107) mmol/L Carbon Dioxide 18 L 18 L (22-30) mmol/L BUN 5 L 4 L (9-20) mg/dL Creatinine 0.7 L 0.7 L (0.8-1.5) mg/dL Glucose 116 H 96 (75-100) mg/dL Calcium 8.4 8.3 L (8.4-10.2) mg/dL TSH < 0.005 L (0.270-4.200) mlU/mL 09/21/19 Range/Units 05:46 Sodium (137-145) mmol/L Potassium (3.6-5.0) mmol/L Chloride (98-107) mmol/L Carbon Dioxide (22-30) mmol/L BUN (9-20) mg/dL Creatinine (0.8-1.5) mg/dL Glucose (75-100) mg/dL Calcium (8.4-10.2) mg/dL TSH < 0.005 L (0.270-4.200) mlU/mL Adrenal panel 09/20/19 09/21/19 Range/Units 09:02 05:46 Sodium 138 139 (137-145) mmol/L Potassium 3.8 3.8 (3.6-5.0) mmol/L Chloride 103.6 104.1 (98-107) mmol/L Carbon Dioxide 18 L 18 L (22-30) mmol/L BUN 5 L 4 L (9-20) mg/dL Creatinine 0.7 L 0.7 L (0.8-1.5) mg/dL Glucose 116 H 96 (75-100) mg/dL Calcium 8.4 8.3 L (8.4-10.2) mg/dL
[2019-09-21] MEDS: FAMOTIDINE 10 MG TAB PO SCH (10:21)
--- NOTE | 2019-09-21 10:40 | Progress Note ---
Hospitalist Physical - Constitutional Vitals: Temp Pulse Resp BP Pulse Ox 99.5 F 96 H 20 106/48 97 09/21/19 00:45 09/21/19 00:45 09/21/19 05:33 09/21/19 00:45 09/21/19 00:45 General appearance: Present: no acute distress, well-nourished Results - Labs CBC & Chem 7: 09/21/19 05:46 09/21/19 05:46 Labs: Laboratory Last Values WBC 13.4 K/mm3 (4.5-11.0) H 09/21/19 05:46 RBC 4.38 M/mm3 (3.65-5.03) 09/21/19 05:46 Hgb 12.8 gm/dl (11.8-15.2) 09/21/19 05:46 Hct 38.4 % (35.5-45.6) 09/21/19 05:46 MCV 88 fl (84-94) 09/21/19 05:46 MCH 29 pg (28-32) 09/21/19 05:46 MCHC 33 % (32-34) 09/21/19 05:46 RDW 13.3 % (13.2-15.2) 09/21/19 05:46 Plt Count 222 K/mm3 (140-440) 09/21/19 05:46 Lymph % (Auto) 13.2 % (13.4-35.0) L 09/21/19 05:46 [place] % (Auto) 10.3 % (0.0-7.3) H 09/21/19 05:46 Eos % (Auto) 0.5 % (0.0-4.3) 09/21/19 05:46 Baso % (Auto) 0.4 % (0.0-1.8) 09/21/19 05:46 Lymph # 1.8 K/mm3 (1.2-5.4) 09/21/19 05:46 [place] # 1.4 K/mm3 (0.0-0.8) H 09/21/19 05:46 Eos # 0.1 K/mm3 (0.0-0.4) 09/21/19 05:46 Baso # 0.0 K/mm3 (0.0-0.1) 09/21/19 05:46 Seg Neutrophils % 75.6 % (40.0-70.0) H 09/21/19 05:46 Seg Neutrophils # 10.1 K/mm3 (1.8-7.7) H 09/21/19 05:46 Sodium 139 mmol/L (137-145) 09/21/19 05:46 Potassium 3.8 mmol/L (3.6-5.0) 09/21/19 05:46 Chloride 104.1 mmol/L (98-107) 09/21/19 05:46 Carbon Dioxide 18 mmol/L (22-30) L 09/21/19 05:46 Anion Gap 21 mmol/L 09/21/19 05:46 BUN 4 mg/dL (9-20) L 09/21/19 05:46 Creatinine 0.7 mg/dL (0.8-1.5) L 09/21/19 05:46 Estimated GFR > 60 ml/min 09/21/19 05:46 BUN/Creatinine Ratio 6 % 09/21/19 05:46 Glucose 96 mg/dL (75-100) 09/21/19 05:46 Lactic Acid 0.90 mmol/L (0.7-2.0) 09/20/19 09:02 Calcium 8.3 mg/dL (8.4-10.2) L 09/21/19 05:46 Magnesium 2.00 mg/dL (1.7-2.3) 09/19/19 21:36 Total Bilirubin 1.20 mg/dL (0.1-1.2) 09/19/19 21:36 AST 18 units/L (5-40) 09/19/19 21:36 ALT 28 units/L (7-56) 09/19/19 21:36 Alkaline Phosphatase 91 units/L (35-129) 09/19/19 21:36 Total Creatine Kinase 55 units/L (55-170) 09/19/19 21:36 Total Protein 7.9 g/dL (6.3-8.2) 09/19/19 21:36 Albumin 4.1 g/dL (3.9-5) 09/19/19 21:36 Albumin/Globulin Ratio 1.1 % 09/19/19 21:36 TSH < 0.005 mlU/mL (0.270-4.200) L 09/21/19 05:46 Free T4 2.93 ng/dL (0.76-1.46) H 09/21/19 05:46 Urine Color Yellow (Yellow) 09/20/19 08:30 Urine Turbidity Clear (Clear) 09/20/19 08:30 Urine pH 5.0 (5.0-7.0) 09/20/19 08:30 Ur Specific [place] 1.026 (1.003-1.030) 09/20/19 08:30 Urine Protein <15 mg/dl mg/dL (Negative) 09/20/19 08:30 Urine Glucose (UA) Neg mg/dL (Negative) 09/20/19 08:30 Urine Ketones Neg mg/dL (Negative) 09/20/19 08:30 Urine Blood Neg (Negative) 09/20/19 08:30 Urine Nitrite Neg (Negative) 09/20/19 08:30 Urine Bilirubin Neg (Negative) 09/20/19 08:30 Urine Urobilinogen < 2.0 mg/dL (<2.0) 09/20/19 08:30 Ur Leukocyte Esterase Neg (Negative) 09/20/19 08:30 Urine WBC (Auto) 1.0 /HPF (0.0-6.0) 09/20/19 08:30 Urine RBC (Auto) 6.0 /HPF (0.0-6.0) 09/20/19 08:30 Urine Mucus Few /HPF 09/20/19 08:30 Rheumatoid Factor < 10 IU/ml (0-13) 09/20/19 09:02 Active Medications - Current Medications Current Medications: Generic Name Dose Route Start Last Admin [facility] PRN Reason Stop Dose Admin Acetaminophen 650 mg 09/20/19 03:06 09/21/19 06:17 Tylenol PO 650 mg Q4H PRN Administration Pain MILD(1-3)/Fever >100.5/VERAS Famotidine 10 mg 09/20/19 10:00 09/21/19 10:21 Pepcid PO 10 mg BID VASHTI Administration Hydromorphone HCl 1 mg 09/20/19 03:52 09/21/19 08:43 Dilaudid IV 1 mg Q3H PRN Administration Pain , Severe (7-10) Piperacillin Sod/Tazobactam Sod 4.5 gm in 100 mls @ 200 mls/hr 09/20/19 06:00 09/21/19 05:09 Zosyn/Ns 4.5gm/100ml IV 200 mls/hr Q8HR VASHTI Administration Protocol Lactated Ringer's 1,000 mls @ 125 mls/hr 09/20/19 04:00 09/21/19 03:58 Lactated Ringers IV 125 mls/hr DIRECT VASHTI Administration Vancomycin HCl 1,250 mg/ 275 mls @ 166.667 mls/hr 09/20/19 14:00 09/21/19 05:12 Sodium Chloride IV 166.667 mls/hr Q8HR VASHTI Administration Lorazepam 2 mg 09/20/19 11:45 09/20/19 12:01 Ativan IV 09/21/19 11:44 2 mg MUSIC ASSISTANT NR Administration Morphine Sulfate 2 mg 09/20/19 03:06 09/20/19 22:23 Morphine IV 2 mg Q4H PRN Administration Pain, Moderate (4-6) Ondansetron HCl 4 mg 09/20/19 03:06 Zofran IV Q8H PRN Nausea And Vomiting Oxycodone/Acetaminophen 2 tab 09/20/19 07:32 Percocet 5/325 PO Q6H PRN Pain, Moderate (4-6) Sodium Chloride 10 ml 09/20/19 10:00 09/20/19 22:07 Sodium Chloride Flush Syringe 10 Ml IV 10 ml BID VASHTI Administration Sodium Chloride 10 ml 09/20/19 03:06 Sodium Chloride Flush Syringe 10 Ml IV PRN PRN LINE FLUSH
--- NOTE | 2019-09-21 11:05 | Consultation ---
History of Present Illness - Reason for Consult Consult date: 09/21/19 Perianal abscess Requesting physician: ALIDA MAYS - History of Present Illness The patient is a 34-year-old male with hypothyroidism who was admitted to the hospital yesterday with complaints of perirectal pain going on for about a week. Apparently, this developed after he first had some diarrhea which he attributes to food poisoning. Then he took some "detox pills" which led to diarrhea. CT scan of the pelvis with IV contrast showed a small right perianal abscess measuring about 2.5 x 3.5 cm. Patient was seen by general surgery and on 09/20/2019, underwent a bedside I&D, small abscess cavity was identified which was drained and then packed. Feeling better except for pain. Denies any MSM behavior, denies IVDU but smokes marijuana, occasional alcohol, cocaine, ecstasy. Review of Systems: General: Positive for fever HEENT: no new visual disturbance Respiratory: No cough, sputum, hemoptysis or shortness of breath Cardiovascular: No chest pain, syncope Gastrointestinal: No nausea, vomiting or diarrhea Genitourinary: No dysuria or hematuria Musculoskeletal: No new or worsening neck pain or back pain Neurologic: No headaches, seizures Hematologic: No easy bruising or bleeding Endocrine: No night sweats or acute weight loss Skin: negative for rash, jaundice Psychiatric: No suicidal or homicidal ideation Past History Past Medical History: hypothyroidism, other Past Surgical History: No surgical history Social history: single, other (Denies any MSM behavior, denies IVDU but smokes marijuana, occasional alcohol, cocaine, ecstasy. ). denies: smoking, alcohol abuse Family history: cancer (Paternal Grandfather) Medications and Allergies Allergies Allergy/AdvReac Type Severity Reaction Status Date / Time No Known Allergies Allergy Verified 09/20/19 03:14 Home Medications Medication Instructions Recorded Confirmed Last Taken Type No Known Home Medications [No 09/20/19 09/20/19 Unknown History Reported Home Medications] Active Meds: Active Medications Acetaminophen (Tylenol) 650 mg PO Q4H PRN PRN Reason: Pain MILD(1-3)/Fever >100.5/VERAS Last Admin: 09/21/19 06:17 Dose: 650 mg Documented by: Famotidine (Pepcid) 10 mg PO BID VASHTI Last Admin: 09/21/19 10:21 Dose: 10 mg Documented by: Hydromorphone HCl (Dilaudid) 1 mg IV Q3H PRN PRN Reason: Pain , Severe (7-10) Last Admin: 09/21/19 08:43 Dose: 1 mg Documented by: Piperacillin Sod/Tazobactam Sod (Zosyn/Ns 4.5gm/100ml) 4.5 gm in 100 mls @ 200 mls/hr IV Q8HR [facility]; Protocol Last Admin: 09/21/19 05:09 Dose: 200 mls/hr Documented by: Lactated Ringer's (Lactated Ringers) 1,000 mls @ 125 mls/hr IV DIRECT VASHTI Last Admin: 09/21/19 03:58 Dose: 125 mls/hr Documented by: Vancomycin HCl 1,250 mg/ (Sodium Chloride) 275 mls @ 166.667 mls/hr IV Q8HR VASHTI Last Admin: 09/21/19 05:12 Dose: 166.667 mls/hr Documented by: Lorazepam (Ativan) 2 mg IV FIELD APPLICATION ENGINEER NR Stop: 09/21/19 11:44 Last Admin: 09/20/19 12:01 Dose: 2 mg Documented by: Morphine Sulfate (Morphine) 2 mg IV Q4H PRN PRN Reason: Pain, Moderate (4-6) Last Admin: 09/20/19 22:23 Dose: 2 mg Documented by: Ondansetron HCl (Zofran) 4 mg IV Q8H PRN PRN Reason: Nausea And Vomiting Oxycodone/Acetaminophen (Percocet 5/325) 2 tab PO Q6H PRN PRN Reason: Pain, Moderate (4-6) Sodium Chloride (Sodium Chloride Flush Syringe 10 Ml) 10 ml IV BID [facility] Last Admin: 09/20/19 22:07 Dose: 10 ml Documented by: Sodium Chloride (Sodium Chloride Flush Syringe 10 Ml) 10 ml IV PRN PRN PRN Reason: LINE FLUSH Physical Examination - Physical Exam Narrative exam: Physical Exam: Constitutional: Alert, cooperative. No acute distress Head, Ears, Nose: Normocephalic, atraumatic. External ears, nose normal Eyes: Conjunctivae/corneas clear. No icterus. No ptosis. Neck: Supple, no meningeal signs Cardiovascular: S1, S2 normal. Respiratory: Good air entry, clear to auscultation bilaterally GI: Soft, non-tender; bowel sounds normal. No peritoneal signs Musculoskeletal: No pedal edema, no cyanosis. Skin: No rash or abscess. Right perianal region with small wound and packing with mild induration and tenderness surrounding. Hem/Lymphatic: No palpable cervical or supraclavicular nodes. No lymphangitis Psych: Mood ok. Affect normal Neurological: Awake, alert, oriented. No gross abnormality - Constitutional Vitals: Vital Signs Temp Pulse Resp BP Pulse Ox 99.5 F 96 H 20 106/48 97 09/21/19 00:45 09/21/19 00:45 09/21/19 05:33 09/21/19 00:45 09/21/19 00:45 Temperature -Last 24 Hours Temperature 99.5 F Temperature 102.5 F Results - Labs CBC & Chem 7: 09/21/19 05:46 09/21/19 05:46 Labs: Abnormal lab results 09/21/19 09/21/19 09/21/19 Range/Units 05:46 05:46 05:46 WBC 13.4 H (4.5-11.0) K/mm3 Lymph % (Auto) 13.2 L (13.4-35.0) % [place] % (Auto) 10.3 H (0.0-7.3) % [place] # 1.4 H (0.0-0.8) K/mm3 Seg Neutrophils % 75.6 H (40.0-70.0) % Seg Neutrophils # 10.1 H (1.8-7.7) K/mm3 Carbon Dioxide 18 L (22-30) mmol/L BUN 4 L (9-20) mg/dL Creatinine 0.7 L (0.8-1.5) mg/dL Calcium 8.3 L (8.4-10.2) mg/dL TSH < 0.005 L (0.270-4.200) mlU/mL Free T4 2.93 H (0.76-1.46) ng/dL - Imaging and Cardiology CT scan - pelvis: report reviewed, image reviewed (CT scan of the pelvis with IV contrast showed a small right perianal abscess measuring about 2.5 x 3.5 cm) Assessment and Plan Cultures: 09/19/2019 blood culture: No growth 09/20/2019 wound culture: In process. Gram stain with no organisms A/P: 34-year-old male with hypothyroidism with: #Acute perianal abscess: CT scan of the pelvis with IV contrast showed a small right perianal abscess measuring about 2.5 x 3.5 cm. Status post I&D by general surgery. No h/o MSM behavior. #H/O substance abuse: Denies any MSM behavior, denies IVDU but smokes marijuana, occasional alcohol, cocaine, ecstasy. Patient was advised to get HIV, Hepatitis screenings as outpatient. Recs: mainstay is wound care and packing cultures will take a while to result. OK to discharge on PO Augmentin 875 mg BID + Bactrim DS 2 tabs BID x 7 days with outpatient follow up. d/w Dr. Toni Ivy MD, FACP [facility] C: [phone] O: [phone] F: [phone]
[2019-09-21 11:59] VITALS: BP 128/69
--- NOTE | 2019-09-21 12:43 | Discharge Summary ---
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 care physician: OVEN HEATER HELPER Hospitalization Condition: Good Disposition: DC-01 TO HOME OR SELFCARE Time spent for discharge: 32 min Core Measure Documentation - Palliative Care Palliative Care/ Comfort Measures: Not Applicable - Core Measures Any of the following diagnoses?: none Exam - Constitutional Vitals: Temp Pulse Resp BP Pulse Ox 101.4 F H 86 16 128/69 91 09/21/19 11:34 09/21/19 11:34 09/21/19 11:34 09/21/19 11:34 09/21/19 11:34 General appearance: Present: no acute distress, well-nourished - EENT Eyes: Present: PERRL, EOM intact - Neck Neck: Present: supple, normal ROM - Respiratory Respiratory effort: normal Respiratory: bilateral: diminished, negative: rales, rhonchi, wheezing - Cardiovascular Rhythm: regular Heart Sounds: Present: S1 & S2 - Extremities Extremities: no ischemia, No edema - Abdominal General gastrointestinal: Present: soft, non-tender, non-distended - Integumentary Integumentary: Present: clear, warm - Musculoskeletal Musculoskeletal: strength equal bilaterally - Psychiatric Psychiatric: appropriate mood/affect, cooperative - Neurologic Neurologic: moves all extremities Plan Activity: advance as tolerated Diet: regular Wound: per wound nurse instructions Additional Instructions: Sitz bath after every bowel movement. should do sitz baths at least 2-3 times a day. May remove packing today. Follow-up in the surgery office in about 1 week. Advised patient to call for an appointment. Follow up with: FRANCISCO MULLINS MD [Primary Care Provider] - 3-5 Days DENILSON FARIAS MD [Staff Physician] - 7 Days JENNIE PHAN MD [Staff Physician] - 14 Days Prescriptions: Amoxicillin/K Clav Tab [Augmentin 875 mg] 1 tab PO Q12HR 7 Days #14 tab Sulfamethoxazole/Trimethoprim [Bactrim DS TAB] 2 tab PO BID 7 Days #28 tablet oxyCODONE /ACETAMINOPHEN [Percocet 5/325] 1 tab PO BID PRN #10 tablet PRN Reason: Pain , Severe (7-10)
== END 2019-09-21 16:15 | disposition home or self-care (01) | DRG 872 ==
LOC: ED 17:59 → 3A 09-20 02:52
PROVIDERS: ADMIT Hospitalist; ATTEND Internal Medicine
PROC: 0D9Q3ZZ Drainage of Anus, Percutaneous Approach (ICD-10-PCS; principal; 2019-09-20)
DX: A41.9 Sepsis, unspecified organism (principal); K61.0 Anal abscess; E03.9 Hypothyroidism, unspecified; Z80.9 Family history of malignant neoplasm, unspecified
CPT/HCPCS: 36415; 72193; 80048; 80053; 81001; 82140; 82550; 83735; 84439; 84443; 85025; 86038; 86431; 87040; 87075; 87116; 93005; 93010; 96365; 96375; 96376; 99406; G0378; J1170; J2060; J2270; J2543; J3370; J7030; J7040; J7050; J7120; Q9967